=== PATIENT | female | born 1995 ===

== ENCOUNTER 2017-01-03 15:22 | Emergency (ER) | payer OTHER ==
[2017-01-03 15:47] VITALS: BP 118/72; PULSE 70; RESP 16; TEMP 97.8; O2SAT 100
[2017-01-03 16:15] LABS: BASO # 0.1 K/uL (0.0-0.2); BASO % 0.9 % (0.0-2.0); EOS # 0.2 K/uL (0.0-0.7); EOS % 2.9 % (0.0-4.0); HEMATOCRIT 39.2 % (34.0-47.0); LYMPH # 2.1 K/uL (1.0-4.3); LYMPH % 29.3 % (20.0-40.0); MEAN CORPUSCULAR HGB CONC 32.6 g/dL (33.0-37.0); MEAN PLATELET VOLUME 8.7 fl (7.2-11.7); MONO # 0.9 K/uL (0.0-0.8); NEUT # 3.9 K/uL (1.8-7.0); NEUT % 54.9 % (50.0-75.0); NRBC % 0.1 % (0.0-0.0); WHITE BLOOD COUNT 7.2 K/uL (4.8-10.8)
--- NOTE | 2017-01-03 16:22 | ED PDOC ---
HPI: Abdomen Time Seen by Provider: 01/03/17 15:52 Chief Complaint (Nursing): Abdominal Pain Chief Complaint (Provider): pelvic pain History Per: Patient History/Exam Limitations: no limitations Associated Symptoms: Nausea, Back Pain. denies: Fever, Chills, Vomiting, Diarrhea, Loss Of Appetite, Chest Pain, Constipation, Urinary Symptoms Additional Complaint(s): 21yo F in ED for eval of diffuse pelvic pain x 3months noted after her normal vaginal delivery and associated vaginal bleeding x 3d with nausea without vomiting, until today ad fever/chills. pt has nt f.u with obgyn since delivery. Abnormal Vaginal Bleeding: Yes Past Medical History Reviewed: Historical Data, Nursing Documentation, Vital Signs Vital Signs: Last Vital Signs Temp 97.8 F 01/03/17 15:43 Pulse 70 01/03/17 15:43 Resp 16 01/03/17 15:43 BP 118/72 01/03/17 15:43 Pulse Ox 100 01/03/17 16:23 - Medical History PMH: No Chronic Diseases - Family History Family History: States: No Known Family Hx - Allergies Allergies/Adverse Reactions: Allergies Allergy/AdvReac Type Severity Reaction Status Date / Time Penicillins Allergy RASH Verified 01/03/17 15:43 Review of Systems ROS Statement: Except As Marked, All Systems Reviewed And Found Negative Constitutional: Negative for: Fever, Chills Gastrointestinal: Positive for: Nausea, Vomiting Genitourinary Female: Positive for: Vaginal Bleeding, Pelvic Pain Musculoskeletal: Positive for: Back Pain Physical Exam - Reviewed Nursing Documentation Reviewed: Yes Vital Signs Reviewed: Yes - Physical Exam Appears: Positive for: Well, Non-toxic, No Acute Distress Skin: Positive for: Normal Color, Warm, DRY Cardiovascular/Chest: Positive for: Regular Rate, Rhythm Respiratory: Positive for: CNT, Normal Breath Sounds Gastrointestinal/Abdominal: Positive for: Bowel Sounds, Soft, Tenderness ( pelvic ) Back: Positive for: Normal Inspection Extremity: Positive for: Normal ROM Neurologic/Psych: Positive for: Alert, Oriented - Laboratory Results Result Diagrams: 01/03/17 16:00 01/03/17 16:00 - ECG O2 Sat by Pulse Oximetry: 100 - Progress ED Course And Treament: pt will get US trans/pelvic cbc/cmp/lipase. Medical Decision Making Medical Decision Making: no acute finding noted in US, Udip without luek/noted mod. blood. however will need obgyn f/u Disposition - Clinical Impression Clinical Impression: Pelvic pain - Patient ED Disposition Is Patient to be Admitted: No Counseled Patient/Family Regarding: Studies Performed, Diagnosis, Need For Followup - Disposition [facility] [Outside] Disposition: Routine/Home Disposition Time: 19:15 Condition: STABLE Instructions: Pelvic Pain in Women (ED) Forms: [employer] (Romanian) Print Language: FAROESE
[2017-01-03 16:36] LABS: ALB/GLOB RATIO 1.4 (1.0-2.1); ALKALINE PHOSPHATASE 99 U/L (38-126); ALT/SGPT 44 U/L (9-52); AST/SGOT 29 U/L (14-36); BILIRUBIN,TOTAL 0.6 mg/dl (0.2-1.3); BLOOD UREA NITROGEN 8 mg/dl (7-17); CALCIUM 9.5 mg/dL (8.4-10.2); CARBON DIOXIDE 24 mmol/L (22-30); CHLORIDE 107 mmol/L (98-107); GFR AFRICAN-AMERICAN > 60; GLUCOSE,RANDOM 83 mg/dL (65-105); LIPASE 101 U/L (23-300); POTASSIUM 3.9 MMOL/L (3.6-5.0); SODIUM 140 mmol/l (132-148); TOTAL PROTEIN 7.6 G/DL (6.3-8.2)
--- NOTE | 2017-01-03 18:41 | US ---
HISTORY: worsening pelvic pain +vaginal bleed 3mos delivery COMPARISON: None available. TECHNIQUE: Real-time transabdominal pelvic ultrasound was performed. In addition a transvaginal pelvic ultrasound was necessary to better depict pelvic anatomy. FINDINGS: UTERUS: Measures 9.3 x 4.1 x 5.3 cm. Anteverted. ENDOMETRIUM: Measures 8 mm in diameter. CERVIX: No cervical abnormality identified. RIGHT OVARY: Measures 1.8 x 1.1 x 1.9 cm. Blood flow is demonstrated. LEFT OVARY: Measures 2.2 x 0.7 x 1.8 cm. Blood flow is demonstrated. FREE FLUID: No significant free fluid noted. OTHER FINDINGS: None. IMPRESSION: No acute findings identified.
[2017-01-03 19:45] LABS: RBC URINE 38 /hpf (0-3); URINE BILIRUBIN NEGATIVE (NEGATIVE); URINE BLOOD MODERATE (NEGATIVE); URINE COLOR YELLOW (YELLOW); URINE GLUCOSE (UA) NEG (Normal); URINE KETONE NEGATIVE (NEGATIVE); URINE LEUKOCYTE ESTERASE TRACE Leu/uL (Negative); URINE PROTEIN NEGATIVE (NEGATIVE); URINE UROBILINOGEN 0.2-1.0 mg/dL (0.2-1.0); WBC URINE 6 /hpf (0-5)
== END 2017-01-03 19:16 | disposition home or self-care (01) ==
LOC: H.ER 15:22
DX: R10.2 Pelvic and perineal pain (principal); Z88.0 Allergy status to penicillin

== ENCOUNTER 2017-05-22 11:09 | Emergency (ER) | payer OTHER ==
[2017-05-22 11:45] VITALS: BP 115/71; PULSE 74; RESP 18; TEMP 97; O2SAT 99
--- NOTE | 2017-05-22 12:58 | ED PDOC ---
HPI: Abdomen Time Seen by Provider: 05/22/17 11:10 Chief Complaint (Nursing): Abdominal Pain Chief Complaint (Provider): Abdominal pain History Per: Patient History/Exam Limitations: language barrier (translated by oneal) Onset/Duration Of Symptoms: Days (Last February) Outside of [place] travel?: Yes Other Location:: [facility] Current Symptoms Are (Timing): Still Present Location Of Pain/Discomfort: Other (lower abdominal) Quality Of Discomfort: "Pain" Associated Symptoms: Nausea. denies: Vomiting, Diarrhea, Urinary Symptoms ( dysuria, hematuria) Additional Complaint(s): Shima [place] is a 21 year old female, with no past medical history, who presents to the emergency department complaining of lower abdominal pain associated with nausea. Patient reports she had an anticonceptive injection from [facility] last February, since then she has not had her menstrual period. Patient took test at home and it was negative. Patient is concerned that she might be . She denies any vomiting, diarrhea, dysuria or hematuria. No further medical complaints. PMD: None provided. Abnormal Vaginal Bleeding: No Last Menstral Period: February/2017 : 2 Para: 1 Miscarriage: 0 Past Medical History Reviewed: Historical Data, Nursing Documentation, Vital Signs Vital Signs: Last Vital Signs Temp 97.0 F L 05/22/17 11:44 Pulse 74 05/22/17 11:44 Resp 18 05/22/17 11:44 BP 115/71 05/22/17 11:44 Pulse Ox 99 05/22/17 14:57 - Medical History PMH: No Chronic Diseases - Surgical History Surgical History: No Surg Hx - Family History Family History: States: Unknown Family Hx - Social History Current smoker - smoking cessation education provided: No Alcohol: None Drugs: Denies - Allergies Allergies/Adverse Reactions: Allergies Allergy/AdvReac Type Severity Reaction Status Date / Time Penicillins Allergy RASH Verified 01/03/17 15:43 Review of Systems ROS Statement: Except As Marked, All Systems Reviewed And Found Negative Gastrointestinal: Positive for: Nausea, Abdominal Pain (mild lower). Negative for: Vomiting, Diarrhea Genitourinary Female: Negative for: Dysuria, Hematuria Physical Exam - Reviewed Nursing Documentation Reviewed: Yes Vital Signs Reviewed: Yes - Physical Exam Appears: Positive for: Well, Non-toxic, No Acute Distress Head Exam: Positive for: ATRAUMATIC, NORMAL INSPECTION, NORMOCEPHALIC Skin: Positive for: Normal Color, Warm, Dry Eye Exam: Positive for: Normal appearance Neck: Positive for: Normal, Painless ROM, Supple Cardiovascular/Chest: Positive for: Regular Rate, Rhythm. Negative for: Murmur Respiratory: Positive for: Normal Breath Sounds. Negative for: Respiratory Distress Gastrointestinal/Abdominal: Positive for: Normal Exam, Soft. Negative for: Tenderness Back: Positive for: Normal Inspection. Negative for: L CVA Tenderness, R CVA Tenderness Extremity: Positive for: Normal ROM. Negative for: Pedal Edema, Deformity, Swelling Neurologic/Psych: Positive for: Alert, Oriented - Laboratory Results Result Diagrams: 05/22/17 13:22 05/22/17 13:22 - ECG O2 Sat by Pulse Oximetry: 99 (RA) Pulse Ox Interpretation: Normal Medical Decision Making Medical Decision Making: Initial Impression: Nausea Initial Plan: --Beta-HCG, Quantitative --Comp Metabolic Panel --CBC w/ differential --reevaluation 14:30 --Patient not , waiting on medication. 14:55 --Upon provider evaluation patient is medically stable and feels better and requires no further treatment in the ED at this time. Patient will be discharged home. Counseling was provided and all questions were answered regarding diagnosis and need for follow up with PMD. There is agreement to discharge plan. Return if symptoms persist or worsen. Scribe Attestation: Documented by Compa Myers, acting as a scribe for Miguel Bolaños MD Provider Scribe Attestation: All medical record entries made by the Scribe were at my direction and personally dictated by me. I have reviewed the chart and agree that the record accurately reflects my personal performance of the history, physical exam, medical decision making, and the department course for this patient. I have also personally directed, reviewed, and agree with the discharge instructions and disposition. Disposition - Clinical Impression Clinical Impression: Nausea - Patient ED Disposition Is Patient to be Admitted: No Counseled Patient/Family Regarding: Studies Performed, Diagnosis, Need For Followup - Disposition Referrals: [facility] [Outside] [facility] [Outside] Disposition: Routine/Home Disposition Time: 13:35 Condition: IMPROVED Additional Instructions: follow up with your primary doctor in 1-2 days return to the ED with any worsening or concerning symptoms Instructions: Acute Nausea and Vomiting (ED) Forms: [employer] (Portuguese) Print Language: BHUTANESE
[2017-05-22 13:33] LABS: BASO # 0.1 K/uL (0.0-0.2); BASO % 1.1 % (0.0-2.0); EOS # 0.2 K/uL (0.0-0.7); EOS % 3.2 % (0.0-4.0); HEMOGLOBIN 13.3 g/dL (12.0-16.0); LYMPH # 2.1 K/uL (1.0-4.3); LYMPH % 27.4 % (20.0-40.0); MEAN CORPUSCULAR HEMOGLOBIN 26.8 pg (27.0-31.0); MEAN CORPUSCULAR HGB CONC 33.5 g/dL (33.0-37.0); MEAN PLATELET VOLUME 8.3 fl (7.2-11.7); MONO # 0.7 K/uL (0.0-0.8); MONO % 9.2 % (0.0-10.0); NEUT # 4.5 K/uL (1.8-7.0); NEUT % 59.1 % (50.0-75.0); NRBC % 0.1 % (0.0-0.0); RBC 4.95 Mil/uL (3.80-5.20); RED CELL DISTRIBUTION WIDTH 14.3 % (11.5-14.5); WHITE BLOOD COUNT 7.5 K/uL (4.8-10.8)
[2017-05-22 13:41] LABS: ALB/GLOB RATIO 1.1 (1.0-2.1); ALBUMIN 4.2 g/dL (3.5-5.0); ALT/SGPT 52 U/L (9-52); AST/SGOT 25 U/L (14-36); BLOOD UREA NITROGEN 11 mg/dl (7-17); CALCIUM 9.6 mg/dL (8.4-10.2); GFR AFRICAN-AMERICAN > 60; GFR NON-AFRICAN AMERICAN > 60
[2017-05-22] MEDS ORDERED: Sodium Chloride 0.9% 1,000 ML IV STA (14:09)
== END 2017-05-22 15:06 | disposition home or self-care (01) ==
LOC: H.ER 11:09
DX: R11.0 Nausea (principal); R10.9 Unspecified abdominal pain; Z88.0 Allergy status to penicillin
CPT/HCPCS: 80053; 81025; 84702; 85025; 99282; J2405; J7040